=== PATIENT | male | born 1945 | race Caucasian/White ===

== ENCOUNTER → 2016-11-22 | Outpatient (CLI) | payer OTHER ==
[~2016-11-22] MED LIST: ACET250T2 PO; ASPI-496 PO; HYDR-3343 PO; ISOS20TA58 PO; Iron PO; LOSA50TA6 PO; METO50TA82 PO; MULT1TAB60 PO; Oxygen NS; SIMV20TA3 PO; SITA1TAB5 PO; VITA1TAB3 PO
[2016-11-22 11:26] LABS: ASPARTATE AMINO TRANSFERASE 7 U/L (15-37); BLOOD UREA NITROGEN 16 mg/dL (7-18)
== END | disposition home or self-care (01) ==
LOC: STAR 10:03
PROVIDERS: ATTEND Internal Medicine
DX: Z01.818 Encounter for other preprocedural examination (principal); D50.9 Iron deficiency anemia, unspecified
CPT/HCPCS: 36415; 80053; 93005

== ENCOUNTER 2016-11-27 09:37 | Day surgery (SDC) | payer OTHER ==
[2016-11-22 10:35] VITALS: BP 150/69
[~2016-11-27] VITALS: Ht 162.6 cm; Wt 100.0 kg
[2016-11-27] MEDS ORDERED: PROPOFOL 10 MG/ML, 20ML ONE (10:09)
[2016-11-27] MEDS ORDERED: LACTATED RINGERS 1,000 ML IV SCH (10:21)
[2016-11-27] MEDS ORDERED: LIDOCAINE 1%, 2ML SQ PRN (10:30)
[2016-11-27] MEDS ORDERED: LIDOCAINE 1%, 2ML ONE (10:34)
[2016-11-27] MEDS ORDERED: METOPROLOL 1 MG/ML, 5ML IV PRN (13:00)
[2016-11-27] MEDS ORDERED: HYDROmorphone 1 MG/ML, 1ML IV PRN (13:00)
[2016-11-27] MEDS ORDERED: ACETAMINOPHEN 325 MG TABLET PO PRN (13:00)
[2016-11-27] MEDS ORDERED: MIDAZOLAM 1 MG/ML, 2ML IV PRN (13:00)
[2016-11-27] MEDS ORDERED: hydrALAzine 20 MG/ML, 1ML IV PRN (13:00)
[2016-11-27] MEDS ORDERED: OXYcodone 5 MG/5 ML ORAL.SOL UDC PO PRN (13:00)
[2016-11-27] MEDS ORDERED: FENTANYL PF 100 MCG/2ML IV PRN (13:00)
[2016-11-27] MEDS ORDERED: EPHEDRINE 50 MG/ML, 1ML IVPush PRN (13:00)
[2016-11-27] MEDS ORDERED: ONDANSETRON 2MG/ML, 2ML IVPush PRN (13:00)
== END 2016-11-27 14:45 | disposition home or self-care (01) ==
LOC: OUT 09:37
PROVIDERS: ATTEND Internal Medicine
DX: K64.0 First degree hemorrhoids (principal); D50.9 Iron deficiency anemia, unspecified; I10 Essential (primary) hypertension; I25.10 Atherosclerotic heart disease of native coronary artery without angina pectoris; E11.9 Type 2 diabetes mellitus without complications; G47.33 Obstructive sleep apnea (adult) (pediatric); E66.9 Obesity, unspecified; Z68.37 Body mass index [BMI] 37.0-37.9, adult; M19.90 Unspecified osteoarthritis, unspecified site; Z87.01 Personal history of pneumonia (recurrent); E78.5 Hyperlipidemia, unspecified; Z82.3 Family history of stroke; Z82.49 Family history of ischemic heart disease and other diseases of the circulatory system; Z83.3 Family history of diabetes mellitus; Z79.82 Long term (current) use of aspirin
CPT/HCPCS: 43239; 45378; 82962; 88305; J2704; J3490; J7120